=== PATIENT | male | born 1940 | race Caucasian/White ===

== ENCOUNTER 2017-06-18 02:03 | Inpatient (IN) | payer OTHER ==
[2017-06-18] MEDS: SOD CHLORIDE 0.9% 1,000 ML IV (02:07)
[2017-06-18] MEDS: ALBUTEROL 0.083% (NEB) 2.5 MG/3 ML AMP HHN (02:26)
[2017-06-18] MEDS: IPRATROPIUM (NEB) 0.5 MG/2.5 ML AMP HHN (02:26)
[2017-06-18 02:40] LABS: AADO2 Arterial 195.5 mmHg (7.0-24.0); Allen Test ACCEPTAB; Arterial Base Excess 2.6 mmol/L (-3.0-3); Arterial Blood Gas Oxygen Sat 97.1 mmHG (95.0-100.0); Arterial COHb 1.2 % (0.0-3.0); Arterial Fraction of Oxyhgb 95.8 % (93.0-99.0); Arterial MetHb 0.1 % (0.0-1.5); Arterial Total Hemglobin 13.5 g/dl (12.0-18.0); Arterial pCO2 52.4 mmhg (35-45); MODE MASK - SIMPLE; Site Right Radial
[2017-06-18] MEDS: ONDANSETRON 4 MG INJ IV (02:42)
[2017-06-18 03:04] LABS: ADD MAN DIFF? NO
[2017-06-18 03:17] LABS: WHITE BLOOD COUNT 10.9 10^3/ul (4.8-10.8)
[2017-06-18 03:17] LABS: BASOPHIL # 0.1 10^3/ul (0.0-0.1); BASOPHILS % 0.5 % (0.0-2.0); EOSINOPHILS # 0.4 10^3/ul (0.0-0.5); EOSINOPHILS % 3.7 % (0.0-7.0); HEMATOCRIT 39.3 % (42.0-52.0); HEMOGLOBIN 12.6 g/dl (14.0-18.0); LYMPHOCYTES # 1.2 10^3/ul (0.8-2.9); LYMPHOCYTES % 11.1 % (15.0-51.0); MEAN CORPUSCULAR HEMOGLOBIN 31.3 pg (29.0-33.0); MEAN CORPUSCULAR HGB CONC 32.1 g/dl (32.0-37.0); MEAN CORPUSCULAR VOLUME 97.8 fl (82.0-101.0); MEAN PLATELET VOLUME 11.9 fl (7.4-10.4); MONOCYTE # 1.3 10^3/ul (0.3-0.9); MONOCYTES % 11.6 % (0.0-11.0); NEUTROPHIL # 7.9 10^3/ul (1.6-7.5); NEUTROPHILS % 72.5 % (39.0-77.0); PLATELET COUNT 201 10^3/UL (140-415); RED BLOOD COUNT 4.02 10^6/ul (4.70-6.10); RED CELL DISTRIBUTION WIDTH 15.7 % (11.5-14.5)
[2017-06-18 03:34] LABS: ALANINE AMINOTRANSFERASE 40 IU/L (13-69); ALBUMIN 3.5 g/dl (3.3-4.9); ALBUMIN/GLOBULIN RATIO 1.06; ALKALINE PHOSPHATASE 102 IU/L (42-121); ANION GAP 15 (8-16); ASPARTATE AMINO TRANSFERASE 31 IU/L (15-46); BILIRUBIN,INDIRECT 0.2 mg/dl (0-1.1); BILIRUBIN,TOTAL 0.2 mg/dl (0.2-1.3); BLOOD UREA NITROGEN 12 mg/dl (7-20); CALCIUM 8.3 mg/dl (8.4-10.2); CARBON DIOXIDE 28 mmol/L (21-31); CHLORIDE 105 mmol/L (97-110); CREATININE 0.85 mg/dl (0.61-1.24); GLUCOSE 120 mg/dl (70-220); POTASSIUM 4.1 mmol/L (3.5-5.1); SODIUM 144 mmol/L (135-144); TOTAL PROTEIN 6.8 g/dl (6.1-8.1)
[2017-06-18 03:47] LABS: B-TYPE NATRIURETIC PEPTIDE 372 PG/ML (0-125)
[2017-06-18 03:48] LABS: TROPONIN-I < 0.012 ng/ml (0.00-0.12)
[2017-06-18] MEDS ORDERED: BISACODYL (EC) 5 MG TAB PO (05:30)
[2017-06-18] MEDS ORDERED: NACL 0.9% 3 ML SYG IV (05:30)
[2017-06-18] MEDS ORDERED: NITROGLYCERIN (SL) 0.4 MG TAB SL (05:30)
[2017-06-18] MEDS ORDERED: DOCUSATE SODIUM 100 MG CAP PO (05:30)
[2017-06-18] MEDS ORDERED: ACETAMINOPHEN 325 MG TAB PO ×2 (05:30)
[2017-06-18] MEDS ORDERED: ONDANSETRON 4 MG INJ IV ×2 (05:30)
[2017-06-18] MEDS ORDERED: morphine 2 MG INJ IV (05:30)
[2017-06-18] MEDS ORDERED: ASPIRIN 81 MG TAB PO (06:00)
[2017-06-18] MEDS ORDERED: FUROSEMIDE 40 MG INJ IV (06:00)
[2017-06-18 09:15] LABS: CREATINE KINASE 169 IU/L (23-200)
[2017-06-18 09:25] LABS: CK INDEX 0.9; CK-MB 1.44 ng/ml (0.0-2.4); TROPONIN-I < 0.012 ng/ml (0.00-0.12)
[2017-06-18] MEDS ORDERED: morphine LIQ (10 MG/5 ML) CUP PO (09:30)
[2017-06-18] MEDS: ASPIRIN 325 MG TAB PO (10:10)
[2017-06-18] MEDS: CEFEPIME 1GM/50 ML (PMX) 50 ML IVPB (10:10)
[2017-06-18] MEDS: FUROSEMIDE 40 MG INJ IV ×2 (10:14→17:55)
[2017-06-18] MEDS: METHYLPREDNISOLONE 125 MG INJ IV ×2 (10:55→21:48)
[2017-06-18] MEDS: ALBUTEROL/IPRATROPIUM (NEB) 3 ML AMP HHN ×4 (11:34→21:03)
[2017-06-18 15:31] LABS: HEMATOCRIT 39.4 % (42.0-52.0); HEMOGLOBIN 12.7 g/dl (14.0-18.0)
[2017-06-18 15:47] LABS: PHOSPHORUS 3.5 mg/dl (2.5-4.9)
[2017-06-18 15:47] LABS: CREATINE KINASE 170 IU/L (23-200); MAGNESIUM 1.9 mg/dl (1.7-2.5)
[2017-06-18 15:50] LABS: INR 1.17; PROTIME 15.1 Sec (11.9-14.9); PT RATIO 1.2
[2017-06-18 15:51] LABS: PARTIAL THROMBOPLASTIN TIME 36.2 Sec (25.0-35.0)
[2017-06-18 16:00] LABS: CK INDEX 0.8; TROPONIN-I < 0.012 ng/ml (0.00-0.12)
[2017-06-18] MEDS ORDERED: GLUCOSE GEL 15 GRAM TUBE PO ×2 (17:00)
[2017-06-18] MEDS ORDERED: GLUCOSE GEL 15 GRAM TUBE BUCCAL (17:00)
[2017-06-18] MEDS ORDERED: DEXTROSE 50% 50 ML SYRINGE IV ×2 (17:00)
[2017-06-18] MEDS ORDERED: GLUCAGON 1 MG INJ IM (17:00)
[2017-06-18] MEDS: DOCUSATE SODIUM 100 MG CAP PO (17:53)
[2017-06-18] MEDS: INSULIN ASPART [NOVOLOG] 3 ML PEN SC ×2 (17:57→20:29)
[2017-06-18 21:11] LABS: HEMATOCRIT 41.4 % (42.0-52.0); HEMOGLOBIN 13.2 g/dl (14.0-18.0)
[2017-06-18] MEDS: INSULIN GLARGINE [LANtus] 3 ML PEN SC (21:48)
[2017-06-19] MEDS: ALBUTEROL/IPRATROPIUM (NEB) 3 ML AMP HHN ×5 (00:28→16:55)
[2017-06-19] MEDS: METHYLPREDNISOLONE 125 MG INJ IV ×2 (05:37→13:27)
[2017-06-19] MEDS: FUROSEMIDE 40 MG INJ IV (05:38)
[2017-06-19 07:27] LABS: ADD MAN DIFF? NO
[2017-06-19 07:40] LABS: WHITE BLOOD COUNT 8.4 10^3/ul (4.8-10.8)
[2017-06-19 07:40] LABS: HEMATOCRIT 41.6 % (42.0-52.0); HEMOGLOBIN 13.4 g/dl (14.0-18.0); LYMPHOCYTES # 0.6 10^3/ul (0.8-2.9); LYMPHOCYTES % 7.3 % (15.0-51.0); MEAN CORPUSCULAR HEMOGLOBIN 31.8 pg (29.0-33.0); MEAN CORPUSCULAR HGB CONC 32.2 g/dl (32.0-37.0); MEAN CORPUSCULAR VOLUME 98.6 fl (82.0-101.0); MEAN PLATELET VOLUME 11.6 fl (7.4-10.4); MONOCYTE # 0.2 10^3/ul (0.3-0.9); MONOCYTES % 2.7 % (0.0-11.0); NEUTROPHIL # 7.5 10^3/ul (1.6-7.5); NEUTROPHILS % 89.6 % (39.0-77.0); PLATELET COUNT 196 10^3/UL (140-415); RED BLOOD COUNT 4.22 10^6/ul (4.70-6.10); RED CELL DISTRIBUTION WIDTH 15.8 % (11.5-14.5)
[2017-06-19 08:12] LABS: ANION GAP 15 (8-16); BLOOD UREA NITROGEN 17 mg/dl (7-20); CALCIUM 8.6 mg/dl (8.4-10.2); CARBON DIOXIDE 32 mmol/L (21-31); CHLORIDE 100 mmol/L (97-110); CREATININE 0.81 mg/dl (0.61-1.24); GLUCOSE 215 mg/dl (70-220); POTASSIUM 4.2 mmol/L (3.5-5.1); SODIUM 143 mmol/L (135-144)
[2017-06-19 08:20] LABS: MAGNESIUM 1.8 mg/dl (1.7-2.5)
[2017-06-19 08:20] LABS: CHOL/HDL RATIO 2.9 RATIO; CHOLESTEROL 154 mg/dl (100-200); HDL CHOLESTEROL 53 mg/dl (31-75); LDL CHOLESTEROL,CALCULATED 88 mg/dl; TRIGLYCERIDES 67 mg/dl (0-149)
[2017-06-19] MEDS ORDERED: ALBUTEROL/IPRATROPIUM (NEB) 3 ML AMP HHN (08:30)
[2017-06-19 08:44] LABS: THYROID STIMULATING HORMONE 0.171 MIU/L (0.465-4.680)
[2017-06-19] MEDS: DOCUSATE SODIUM 100 MG CAP PO (09:11)
[2017-06-19] MEDS: INSULIN ASPART [NOVOLOG] 3 ML PEN SC ×5 (09:20→18:24)
[2017-06-19] MEDS: ACETYLCYSTEINE 20% 4 ML VIAL NEB ×2 (09:38→13:40)
[2017-06-19] MEDS: MAGNESIUM SULFATE 1 GM/D5W 100 ML IVPB (13:27)
[2017-06-19] MEDS: INSULIN ASP PROT/ASPART (70/30) PEN SC (13:55)
[2017-06-19] MEDS: AMIODARONE 200 MG TAB PO (16:35)
[2017-06-19] MEDS: FUROSEMIDE 20 MG INJ IV (18:42)
== END 2017-06-19 20:06 | disposition short-term general hospital (02) | DRG 291 ==
LOC: E/R 02:03 → TEL 05:13
DX: I11.0 Hypertensive heart disease with heart failure (principal); J96.00 Acute respiratory failure, unspecified whether with hypoxia or hypercapnia; J44.1 Chronic obstructive pulmonary disease with (acute) exacerbation; Z68.43 Body mass index [BMI] 50.0-59.9, adult; S09.90XA Unspecified injury of head, initial encounter; G62.9 Polyneuropathy, unspecified; I50.33 Acute on chronic diastolic (congestive) heart failure; E11.9 Type 2 diabetes mellitus without complications; Z72.0 Tobacco use; W18.30XA Fall on same level, unspecified, initial encounter; Y93.89 Activity, other specified; Y92.002 Bathroom of unspecified non-institutional (private) residence as the place of occurrence of the external cause; Z79.02 Long term (current) use of antithrombotics/antiplatelets; E66.01 Morbid (severe) obesity due to excess calories; R42 Dizziness and giddiness; K21.9 Gastro-esophageal reflux disease without esophagitis; S00.83XA Contusion of other part of head, initial encounter
CPT/HCPCS: 36415; 36600; 70450; 70486; 71045; 71100; 72125; 80048; 80053; 80061; 82550; 82553; 82803; 82962; 83036; 83735; 83880; 84100; 84443; 84484; 85014; 85018; 85025; 85610; 85730; 87040; 93005; 93306; 94640; 94644; 94660; 94664; 96374; 99291-25; J1940